=== PATIENT | female | born 1980 | race Caucasian/White ===

== ENCOUNTER 2020-08-26 20:22 | Emergency (ER) | payer SELFPAY ==
[2020-08-26 20:29] VITALS: BP 109/40; PULSE 90; RESP 22; TEMP 36.7; O2SAT 99
--- NOTE | 2020-08-26 21:00 | DI.RAD_ITS ---
Exam(s) XR HAND LT COMPLETE EXAM: XR HAND LT COMPLETE CLINICAL HISTORY: pain s/p fall. TECHNIQUE: 2D digital imaging was performed. COMPARISON: No exams were available for comparison FINDINGS: There is a nondisplaced transverse fracture of the distal radius. Ulnar styloid tip appears intact. No significant ulnar variance nor carpal dislocation. No fracture seen in the hand. No radiopaque foreign body. No osseous lesions nor erosions. IMPRESSION: No hand fractures but there is nondisplaced fracture distal radius. DATA REPOSITORY: RADIATION DOSE DELIVERED:
--- NOTE | 2020-08-26 21:00 | DI.RAD_ITS ---
Exam(s) XR FOREARM LT EXAM: XR FOREARM LT CLINICAL HISTORY: pain s/p fall. TECHNIQUE: 2D digital imaging was performed. COMPARISON: No exams were available for comparison FINDINGS: Nondisplaced fracture of the distal radius noted. No fracture seen more proximally in the forearm mandy magnus. No elbow joint effusion. IMPRESSION: DATA REPOSITORY: RADIATION DOSE DELIVERED:
--- NOTE | 2020-08-26 21:02 | DI.RAD_ITS ---
Exam(s) XR WRIST LT COMPLETE EXAM: XR WRIST LT COMPLETE CLINICAL HISTORY: pain s/p fall. TECHNIQUE: 2D digital imaging was performed. COMPARISON: No exams were available for comparison FINDINGS: There is a nondisplaced transverse fracture in the distal radius located 1 centimeter proximal to the radiocarpal joint surface and not appearing to violate the joint surface. Adjacent distal ulna is i ntact. No significant ulnar variance. Scaphoid and other carpal row bones appear unremarkable. IMPRESSION: There is nondisplaced transverse fracture in the distal radius. DATA REPOSITORY: RADIATION DOSE DELIVERED:
--- NOTE | 2020-08-26 21:06 | W.ED.GENAD ---
Discharge Plan Disposition Patient Disposition: HOME Condition: Stable Discharge Details Clinical Impression: Fracture of left wrist, Contusion of hand, left, Contusion of forearm Primary Care Provider: Unknown,Unknown ED Provider: Valentin Mckeon Discharge Instructions Instructions: Wrist Fracture in Adults (ED) Additional Instructions: you can take 1000mg tylenol and 600mg ibuprofen every 6 hours for pain as needed call orthopedics for an appointment if you have severe worsening pain or new pain such as chest pain or abdomen pain return to the emergency department Referrals: Nilton Hung MD [ [facility] STAFF PHYSICIAN] - Medical Decision Making 40 yo female who denies chronic medical problems comes in with cc of left wrist pain. She was playing basketball just prior to arrival, tripped and fell back landing on right wrist. No head trauma or loc and only has pain in the left wirst area. She has pain over radial surface of the left wrist, normal pulses and no visible or palpable deformity. Has mild mid forearm pain as well and hand in the palmar surface of the hand, full range of motion of the fingers and limited rom of the wrist due to the pain. no pain in the elbow with full range of motion. Suspect contusion/sprain but will xray to evaluate for fx xray on my read shows non displaced radius fracture, remains stable. If vrad agrees will place in splint and have her f/u with ortho Differential Diagnosis Differential Diagnosis: sprain, contusion, fracture Imaging Data Radiologic Study: Attestation: I personally reviewed and interpreted this imaging study as follows: Imaging: X-Ray My impression: wrist fracture on hand xray Radiologic Study #2: Attestation: I personally reviewed and interpreted this imaging study as follows: Imaging: X-Ray My impression: wrist fracture on wrist xray Radiologic Study #3: Attestation: I personally reviewed and interpreted this imaging study as follows: Imaging: X-Ray My impression: wrist fracture on forearm xray HPI General Mode of arrival: ambulatory. Date/Time Provider Initiated Documentation: 08/26/20 20:32. Limitations to Documentation: no limitations. Information obtained by: patient. History of Present Illness 40 year old F presents to the emergency department with the chief complaint of left wrist pain, described as moderate, Quality is described as aching, and it has been constant. No relieving factors improve symptom(s), No exacerbating factors reported . Patient notes no other symptoms.. Patient did receive the following treatments prior to arrival, none General Stated Complaint: Orthopedic JEET: 4 Review of Systems All systems reviewed & are unremarkable except as noted in HPI and below Constitutional Constitutional: Denies chills, Denies fever(s) and Denies weakness Cardiovascular Cardiovascular: Denies chest pain and Denies dyspnea Respiratory Respiratory: Denies cough and Denies dyspnea Gastrointestinal Gastrointestinal: Denies abdominal pain, Denies nausea and Denies vomiting Neurologic Neurologic: Denies weakness [facility] Social History Smoking/Tobacco Use Status: Current every day Smoking risk assessment performed?: Yes Alcohol Intake: current Alcohol Intake frequency: a few times a week Substance use type: marijuana Do you feel safe at home: Yes Do you feel safe in your relationship?: Yes Exam Const General: no acute distress Orientation: alert HENTN Head: normal to inspection Ears: external ears normal General nose exam: external nose normal Mouth: moist mucous membranes Eyes General: appearance normal, both eyes and all related structures Neck Neck: normal visual inspection Resp Effort & Inspection: normal respiratory effort and able to speak in complete sentences Cardio Rate: regular rate Skin General skin exam: no rashes or lesions noted Neuro General: patient alert and patient oriented x3 Extrem General: capillary refill normal Psych Mental Status: mental status grossly normal Course Vital Signs Vital signs: Vital Signs Temperature 36.7 C 08/26/20 20:29 Pulse 90 08/26/20 20:29 Respiratory Rate 22 08/26/20 20:29 Blood Pressure 109/40 L 08/26/20 20:29 Pulse Oximetry 99 08/26/20 20:29 Temperature 36.7 C 08/26/20 20:29 Temperature Source Temporal Artery Scan 08/26/20 20:29 Pulse 90 08/26/20 20:29 Respiratory Rate 22 08/26/20 20:29 Respiratory Effort Non-Labored 08/26/20 20:32 Blood Pressure 109/40 L 08/26/20 20:29 Pulse Oximetry 99 08/26/20 20:29 Oxygen Delivery Method Room Air 08/26/20 20:29 Oxygen Flow Rate 0 08/26/20 20:29 Pain Level 10 08/26/20 20:29
[2020-08-26] MEDS: Ibuprofen 600 MG TAB PO (21:08)
[2020-08-26] MEDS: oxyCODONE 5 MG TAB PO (21:30)
--- NOTE | 2020-08-26 21:45 | DI.VRAD_ITS ---
PROCEDURE INFORMATION: Exam: XR Left Wrist Exam date and time: 08/26/2020 8:34 PM Age: 40 years old Clinical indication: Pain; Wrist; Left; Patient HX: Fall. ; Additional info: Best images obtained unable to remove plastic bracelet. TECHNIQUE: Imaging protocol: XR Left wrist. Views: 3 or more views. COMPARISON: No relevant prior studies available. FINDINGS: Bones/joints: This transverse fracture of the distal radial metaphysis with mild dorsal angulation. Soft tissues: Soft tissue swelling is present. IMPRESSION: Transverse fracture of the distal radial metaphysis with mild dorsal angulation. Dictated and Authenticated by: Theodore Poon MD. Ordering:ISMAEL Hanson MD
--- NOTE | 2020-08-26 21:46 | DI.VRAD_ITS ---
PROCEDURE INFORMATION: Exam: XR Left Forearm Exam date and time: 08/26/2020 8:34 PM Age: 40 years old Clinical indication: Pain; Wrist; Left; Additional info: Best images obtained unable to remove plastic bracelet. TECHNIQUE: Imaging protocol: XR Left forearm. Views: 2 views. COMPARISON: CR XR HAND LT COMPLETE 08/26/2020 8:55 PM FINDINGS: Bones/joints: Again noted is a transverse fracture of the distal radial metaphysis. No fracture of the mid or proximal forearm is noted. Soft tissues: Normal. IMPRESSION: Fracture of the distal radial metaphysis as previously described. Dictated and Authenticated by: Theodore Poon MD. Ordering:ISMAEL Hanson MD
--- NOTE | 2020-08-26 21:47 | DI.VRAD_ITS ---
PROCEDURE INFORMATION: Exam: XR Left Hand Exam date and time: 08/26/2020 8:34 PM Age: 40 years old Clinical indication: Pain; Hand; Left; Additional info: Best images obtained unable to remove plastic bracelet. TECHNIQUE: Imaging protocol: XR Left hand. Views: 3 or more views. COMPARISON: No relevant prior studies available. FINDINGS: Bones/joints: No acute fracture or dislocation of the hand. Transverse fracture of the distal radial metaphysis. Soft tissues: Normal. IMPRESSION: No acute fracture or dislocation of the hand. Dictated and Authenticated by: Theodore Poon MD. Ordering:ISMAEL Hanson MD
== END 2020-08-26 21:50 | disposition home or self-care (01) ==
PROVIDERS: Emergency Provider Emergency Medicine
DX: S52.592A Other fractures of lower end of left radius, initial encounter for closed fracture (principal); W18.39XA Other fall on same level, initial encounter
CPT/HCPCS: 99284; 73090; 73110; 73130; 99283

== ENCOUNTER 2020-09-05 11:38 | Outpatient (CLI) | payer SELFPAY ==
--- NOTE | 2020-09-05 11:30 | DI.RAD_ITS ---
Exam(s) XR WRIST LT LIMITED EXAM: XR WRIST LT LIMITED CLINICAL HISTORY: f/u fracture. TECHNIQUE: 2D digital imaging was performed. COMPARISON: CR,XR XR WRIST LT COMPLETE from 08/26/2020 FINDINGS: In noted is a healing fracture site distal. Fracture line is still faintly but increasing less so th an previous. No displacement. No violation of the radiocarpal joint space. Distal ulna appears int act as does the ulnar styloid. Scaphoid bone appears intact bone density is normal IMPRESSION: DATA REPOSITORY: RADIATION DOSE DELIVERED:
== END 2020-09-05 11:39 | disposition home or self-care (01) ==
LOC: DIORS 11:38
PROVIDERS: Visit Provider Physician Assistant Surgical
DX: S62.102D Fracture of unspecified carpal bone, left wrist, subsequent encounter for fracture with routine healing (principal); X58.XXXD Exposure to other specified factors, subsequent encounter
CPT/HCPCS: 73100

== ENCOUNTER 2022-11-27 03:38 | Emergency (ER) | payer MEDICAID, SELFPAY ==
[2022-11-27 03:44] VITALS: BP 127/75; PULSE 90; RESP 16; TEMP 36.6; O2SAT 100
[2022-11-27 03:56] LABS: Bilirubin Negative (Negative); Blood Large (Negative); Clarity Cloudy (Clear); Glucose Negative (Negative); Ketones Negative (Negative); Leukocyte Esterase Small (Negative); Nitrite Positive (Negative); Specific Gravity 1.025 (1.005-1.025); Urobilinogen 0.2 mg/dL (Up to 0.2); pH 5.5 (5-8)
[2022-11-27 04:05] LABS: WBC >50 HPF (0-5)
[2022-11-27 04:06] LABS: C & S Indicated? Yes
--- NOTE | 2022-11-27 04:12 | W.ED.GENAD ---
Discharge Plan Disposition Patient Disposition: Home Discharge Details Clinical Impression: Urinary tract infection Primary Care Provider: None,None ED Provider: Brittani Moody Home Meds and New Rx's Prescriptions: New phenazopyridine [Pyridium] 200 mg tablet 200 mg PO TID PRN (Reason: pain) Qty: 7 0RF nitrofurantoin monohyd/m-cryst [Macrobid] 100 mg capsule 100 mg PO BID 7 Days Qty: 14 1RF Rx Instructions: must administer with a meal/food Discharge Instructions Instructions: Urinary Tract Infection in Women (ED) Additional Instructions: Take the Macrobid twice a day as prescribed. Pyridium 3 times per day for today and tomorrow. Drink plenty of fluids. Return to ED for fever 100.4 or above, flank pain, vomiting, any other concerns. Medical Decision Making Patient has no allergies and I will give her Macrodantin for the UTI. I also told her that she can take 1 macrodantin after intercourse if she feels she starts to get more frequent UTIs. Medical Records Medical records reviewed: Yes I reviewed the patient's medical records. Lab Data Lab results reviewed: Yes I reviewed the patient's lab results. Lab results narrative: Urine positive for infection HPI General Date/Time Provider Initiated Documentation: 11/27/22 04:06. HPI Narrative: This 42-year-old female patient presents with a chief complaint of dysuria that started yesterday. Patient states she did not feel well yesterday and actually took a nap. Around 8:00 last night she began having urinary urgency, frequency, and burning. She denies abdominal fever or chills. Makes this better or worse. Nausea, vomiting, or diarrhea. Patient states sexually active but denies any possibility of . Related Data Home Medications Medication Instructions Recorded Confirmed nitrofurantoin 100 mg PO BID 7 days #14 caps 11/27/22 monohydrate/macrocrystals 100 mg capsule (Macrobid) phenazopyridine 200 mg tablet 200 mg PO TID PRN pain 6 doses #7 11/27/22 (Pyridium) tabs Previous Rx's Medication Instructions Recorded nitrofurantoin 100 mg PO BID 7 days #14 caps 11/27/22 monohydrate/macrocrystals 100 mg capsule (Macrobid) phenazopyridine 200 mg tablet 200 mg PO TID PRN pain 6 doses #7 11/27/22 (Pyridium) tabs Allergies Allergy/AdvReac Type Severity Reaction Status Date / Time No Known Allergies Allergy Verified 09/05/20 11:28 General Stated Complaint: Urinary JEET: 4 Review of Systems Constitutional Constitutional: Denies chills, Denies fever(s), Denies headache(s) and Denies weakness Eyes Eyes: Denies diplopia and Reports other (no redness) ENT Ears, Nose, Mouth, and Throat: Denies otalgia, Denies headache(s), Denies nasal congestion, Denies nasal discharge, Denies neck pain and Denies sore throat Cardiovascular Cardiovascular: Denies chest pain, Denies palpitations and Denies dyspnea Respiratory Respiratory: Denies cough and Denies dyspnea Gastrointestinal Gastrointestinal: Denies abdominal pain, Denies diarrhea, Denies nausea and Denies vomiting Genitourinary Genitourinary: Denies dysuria Musculoskeletal Musculoskeletal: Denies myalgias, Denies muscle weakness, Denies neck pain, Denies numbness and Reports other (edema) Integumentary/Breasts Skin/Breast: Denies change in pigmentation and Denies rash Neurologic Neurologic: Denies headache(s), Denies numbness and Denies weakness Endocrine Endocrine: Denies palpitations PFSH All Active Problems Fracture of left wrist (Acute) Contusion of hand, left (Acute) Contusion of forearm (Acute) Urinary tract infection (Acute) Social History Smoking/Tobacco Use Status: Current every day Smoking risk assessment performed?: Yes Alcohol Intake: current Alcohol Intake frequency: a few times a week Substance use type: marijuana Current gender identity: female Do you feel safe at home: Yes Do you feel safe in your relationship?: Yes Exam Const General: no acute distress, well developed, well groomed and not in acute distress Nutritional Appearance: well nourished Orientation: alert and oriented x3 HENMT Head: normocephalic and atraumatic Ears: external ears normal Mouth: oropharynx normal and moist mucous membranes Throat: posterior oropharynx normal Eyes Conjunctivae: conjunctivae normal Neck Neck: full ROM and supple Chest Chest: normal inspection of the chest Resp Effort & Inspection: normal respiratory effort Auscultation: clear to auscultation bilaterally Cardio Rate: regular rate Rhythm: regular rhythm Heart Sounds: no murmurs and no rubs GI Inspection: normal to inspection Palpation: soft, nontender and other (non distended) Auscultation: normal bowel sounds Skin General skin exam: no rashes or lesions noted and other (pink, warm, dry) Neuro General: patient alert, patient awake and patient oriented x3 Speech: speech normal Motor: other (RUIZ) Sensory Exam: no sensory deficits noted Extrem General: normal to inspection, full ROM and pedal edema present Psych Mental Status: mental status grossly normal Speech and Movement: speech and movement normal Affect: normal affect Course Vital Signs Vital signs: Vital Signs Temperature 36.6 C 11/27/22 03:44 Pulse 90 11/27/22 03:44 Respiratory Rate 16 11/27/22 03:44 Blood Pressure 127/75 11/27/22 03:44 Pulse Oximetry 100 11/27/22 03:44 Temperature 36.6 C 11/27/22 03:44 Temperature Source Oral 11/27/22 03:44 Pulse 90 11/27/22 03:44 Respiratory Rate 16 11/27/22 03:44 Respiratory Effort Normal 11/27/22 03:46 Blood Pressure 127/75 11/27/22 03:44 Pulse Oximetry 100 11/27/22 03:44 Pain Level 0 11/27/22 03:44 Lab/Test Results Lab/Test Results: 11/27/22 03:50 Urine - Reflex from Ua Urine Culture - Pending Laboratory Tests Range/Units 11/27/22 03:50 Urine Color (Yellow) Yellow Urine Clarity (Clear) Cloudy Urine pH (5-8) 5.5 Ur Specific Hillister (1.005-1.025) 1.025 Urine Protein (Negative) mg/dL 100 H Urine Ketones (Negative) mg/dL Negative Urine Blood (Negative) Large H Urine Nitrite (Negative) Positive H Urine Bilirubin (Negative) Negative Urine Urobilinogen (Up to 0.2) mg/dL 0.2 Ur Leukocyte Esterase (Negative) Small H Urine RBC (0-2) HPF Urine WBC (0-5) HPF >50 H Ur Epithelial Cells (Negative) HPF Urine Crystals (Negative) HPF Urine Bacteria (Negative) HPF Urine Mucus (Negative) Ur Culture Indicated? Yes Urine Glucose (Negative) mg/dL Negative
[2022-11-27] MEDS: Nitrofurantoin Macrocrystal 50 MG CAP 100 MG PO (04:31)
[2022-11-27] MEDS: Phenazopyridine 200 MG TAB PO (04:31)
== END 2022-11-27 04:32 | disposition home or self-care (01) ==
PROVIDERS: Emergency Provider Emergency Medicine
DX: N39.0 Urinary tract infection, site not specified (principal); B96.20 Unspecified Escherichia coli [E. coli] as the cause of diseases classified elsewhere
CPT/HCPCS: 87077; 99283; 81003; 81015; 87086; 87186

== ENCOUNTER 2023-09-17 05:36 | Emergency (ER) | payer MEDICAID, SELFPAY ==
[2023-09-17 05:41] VITALS: BP 113/76; PULSE 103; RESP 16; TEMP 36.8; O2SAT 98
--- NOTE | 2023-09-17 05:45 | DI.US_ITS ---
Exam(s) US ABDOMEN LIMITED EXAM: US ABDOMEN LIMITED CLINICAL HISTORY: RUQ pain/tenderness TECHNIQUE: Ultrasound abdomen performed using standard protocol. COMPARISON: No exams were available for comparison FINDINGS: LIVER: Normal size. Normalechogenicity. No focal liver lesions are seen.. GALLBLADDER: No evidence of cholelithiasis. No evidence of wall thickening. No pericholecystic fluid identified. Question tiny cholesterol polyp. SAAVERDA'S SIGN: Negative. BILIARY SYSTEM: No intrahepatic or extrahepatic biliary ductal dilation. RIGHT KIDNEY: Normal size. No evidence of renal calculi. No evidence of hydronephrosis. No suspicious renal mass. No cyst identified. PANCREAS: Normal where visualized. ABDOMINAL AORTA AND IVC: Visualized portions normal caliber. ASCITES: None seen. IMPRESSION: No acute abnormality.. DATA REPOSITORY:
--- NOTE | 2023-09-17 05:45 | RT.EKG_ITS ---
APPROVED REPORT Exam: Resting ECG Reason for Exam: upper abdominal pain Patient Location: E HR:72 bpm ECG Measurements Heart Rate 72 AXIS TN 124 P 43 QRSd 77 QRS 34 QT 380 T 43 QTc 418 Conclusion Sinus rhythm...normal P axis, V-rate 60- 99 Normal Electrocardiogram
--- NOTE | 2023-09-17 05:48 | W.ED.GENAD ---
Discharge Plan Discharge Details Chief Complaint: Abd Prob Clinical Impression: Abdominal pain, Vomiting Primary Care Provider: Unknown,Unknown ED Provider: Joaquin Galvin [facility] General Mode of arrival: ambulatory. Date/Time Provider Initiated Documentation: 09/17/23 05:47. Limitations to Documentation: no limitations. Information obtained by: patient and RN notes reviewed. HPI Narrative: Patient presents to ED with upper abdominal pain mostly right-sided in nature for the last 2 days. Pain does wax and wane in terms of intensity but at this point is fairly constant. She has associated nausea and vomiting at this point. She has had similar episodes though short-lived in the past. She has had couple episodes of diarrhea. She denies fever. She denies chest pain or shortness of breath. Denies any back pain or urinary symptoms. Previous tubal ligation but no other abdominal surgeries. Pain significantly worse this morning so presents to ED for evaluation. Related Data Allergies Allergy/AdvReac Type Severity Reaction Status Date / Time No Known Allergies Allergy Verified 09/17/23 05:46 General Stated Complaint: Abd Prob JEET: 3 Review of Systems Narrative: Per HPI Exam Narrative Exam Narrative: Const: WDWN female in NAD. VS per triage. HEENT: NC/AT. Normal facial exam. Neck: Supple. Trachea midline. Lungs: Normal respiratory effort. Lungs are clear. Cor: RRR without murmur. Good radial pulses. GI: Soft/ND. Tender in the right upper quadrant with voluntary guarding and equivocal Ji. Back: No CVAT. Neuro: A+O x 3. Normal speech, mentation, gait. Cranial nerves II - XII grossly intact. No gross motor or sensory deficit. Ext: No C/C/E. Course Vital Signs Vital signs: Vital Signs Temperature 98.2 F 09/17/23 05:41 Pulse 103 H 09/17/23 05:41 Respiratory Rate 16 09/17/23 05:41 Blood Pressure 113/76 09/17/23 05:41 Pulse Oximetry 98 09/17/23 05:41 Temperature 98.2 F 09/17/23 05:41 Temperature Source Temporal Artery Scan 09/17/23 05:41 Pulse 103 H 09/17/23 05:41 Respiratory Rate 16 09/17/23 05:41 Blood Pressure 113/76 09/17/23 05:41 Blood Pressure Position Sitting 09/17/23 05:41 Pulse Oximetry 98 09/17/23 05:41 Oxygen Delivery Method Room Air 09/17/23 05:41 Oxygen Flow Rate 0 09/17/23 05:41 Pain Level 3 09/17/23 05:41 Medical Decision Making Patient presenting to ED with upper abdominal pain that is mostly right-sided in nature. Significant right upper quadrant tenderness. Most likely has acute cholecystitis. Will obtain EKG and 1 troponin as she is 43 and is a smoker. Otherwise IV fluids, ondansetron, morphine ordered. Laboratory studies including a lipase sent. Right upper quadrant ultrasound ordered. Laboratory studies with a normal white count. Chemistries are unremarkable. Liver function normal and lipase normal. Troponin negative. Patient signed out to oncoming ED physician pending right upper quadrant ultrasound to evaluate for acute cholecystitis. Lab Data Lab results reviewed: Yes I reviewed the patient's lab results. ECG Data Attestation: I personally reviewed and interpreted this ECG (s) as follows: PFSH All Active Problems (Updated 09/17/23 @ 07:25 by Joaquin Galvin MD) Vomiting (Acute) Abdominal pain (Acute) Medical History No significant past medical history Surgical History S/P tubal ligation Social History Smoking/Tobacco Use Status: Current every day Smoking risk assessment performed?: Yes Alcohol Intake: current Alcohol Intake frequency: a few times a week Substance use type: marijuana Current gender identity: female Do you feel safe at home: Yes Do you feel safe in your relationship?: Yes
[2023-09-17 06:04] LABS: Bilirubin Small (Negative); Blood Trace-lysed (Negative); Clarity Sl Cloudy (Clear); Glucose Negative (Negative); Ketones >=160 mg/dL (Negative); Leukocyte Esterase Negative (Negative); Nitrite Negative (Negative); Specific Gravity >= 1.030 (1.005-1.025)
[2023-09-17 06:05] LABS: Abs Immature Grans 0.04 10^3/uL (0.0-0.06); Absolute Basophil Count 0.02 10^3/uL (0.0-0.2); Absolute Eosinophil Count 0.16 10^3/uL (0.0-0.7); Absolute Lymphocyte Count 1.42 10^3/uL (1.2-3.4); Absolute Monocyte Count 0.43 10^3/uL (0.1-0.8); Absolute Neutrophil Count 8.44 10^3/uL (1.2-6.7); Basophils % 0.2 %; Eosinophils % 1.5 %; HCT 43.4 % (36.0-46.0); HGB 15.2 g/dL (11.2-15.7); Immature Grans % 0.4 %; Lymphocytes % 13.5 %; MCH 34.9 pg (27.0-33.0); MCV 100 fL (80-95); MPV 9.6 fL (8.0-11.0); Monocytes % 4.1 %; Neutrophils % 80.3 %; Platelet Count 292 10^3/uL (130-400); RBC 4.36 10^6/uL (3.93-5.22); RDW 13.2 % (11.7-14.6); RDW-SD 48.4 fL; WBC 10.51 10^3/uL (4.4-10.8)
[2023-09-17] MEDS: Lactated Ringers 1,000 ML 1000 ML IV ×2 (06:09→07:55)
[2023-09-17 06:10] LABS: Bacteria Moderate HPF (Negative); C & S Indicated? No/Sq. Contamination; Casts Negative LPF (Negative); Crystals Negative HPF (Negative); Epithelial Cells Many HPF (Negative); Mucus Heavy (Negative); WBC 0-2 HPF (0-5)
[2023-09-17] MEDS: MORPHine 10 MG/ML VIAL 4 MG IVP (06:10)
[2023-09-17] MEDS: Ondansetron 4 MG/2 ML VIAL IVP (06:11)
[2023-09-17 06:24] LABS: ALT 23 U/L (14-59); AST 10 U/L (15-37); Albumin 3.6 g/dL (3.4-5.0); Alkaline Phosphatase 63 U/L (46-116); Anion Gap 11.9 mmol/L (3-11); BUN 10 mg/dL (7-18); Bilirubin, Total 0.98 mg/dL (0.2-1.0); CO2 23.1 mmol/L (21.0-32.0); CREATININE 0.8 mg/dL (0.55-1.02); Calcium 8.5 mg/dL (8.5-10.1); Chloride 103 mmol/L (98-107); Estimated GFR 94.87 (mL/min/1.73m2); Glucose 113 mg/dL (74-106); Lipase 19 U/L (16-77); Potassium 3.9 mmol/L (3.5-5.1); Sodium 138 mmol/L (136-145); Troponin I < 50 ng/L (< or =60)
--- NOTE | 2023-09-17 09:34 | ED.PROG_ITS ---
Date of service: 09/17/23 Time of Service: 09:34 Medical Decision Making Patient resting comfortably asymptomatic no further nausea or vomiting, abdomen soft nontender nondistended afebrile nontoxic, labs and imaging largely unremarkable incidental gallbladder polyp noted on ultrasound no signs of cholecystitis. Patient feels comfortable following with her primary care physician will return for any worsening symptoms Quality:[facility] Health Related Social Needs: No Data to Display Sign Out Sign Out Data: Sign Out Comment: Pending right upper quadrant ultrasound for right upper quadrant tenderness and vomiting despite normal white count and liver function. Last updated by Joaquin Galvin MD at 09/17/23 07:32 Discharge Plan Disposition Patient Disposition: Home Condition: Improving Discharge Details Chief Complaint: Abd Prob Clinical Impression: Abdominal pain, Vomiting, Gallbladder polyp Primary Care Provider: Unknown,Unknown ED Provider: Luisito Montero Discharge Instructions Instructions: Nausea and vomiting in adults Additional Instructions: Please follow-up with your primary care physician. Please return to the emergency department for any worsening symptoms. You are found to have a gallbladder polyp today on your ultrasound this something that should be followed up over the coming weeks to months
--- NOTE | 2023-09-17 10:29 | DI.VRAD_ITS ---
PROCEDURE INFORMATION: Exam: US Duplex Artery or Vein of the Abdominal and/or Reproductive Organs, Limited Liver Exam date and time: 09/17/2023 7:47 AM Age: 43 years old Clinical indication: Other: Ruq pain TECHNIQUE: Imaging protocol: Real-time duplex ultrasound scan of the arterial or venous flow with color Doppler flow and spectral waveform analysis with image documentation. Limited Duplex exam focused on the liver and portal venous system. Duplex exam was performed to evaluate for vascular conditions. COMPARISON: No relevant prior studies available. FINDINGS: Portal venous: The portal vein is patent with hepatopetal flow. Spectral waveform demonstrates normal respiratory phasicity. IMPRESSION: Unremarkable duplex of the portal vein. PROCEDURE INFORMATION: Exam: US Abdomen, Limited; Right Upper Quadrant Exam date and time: 09/17/2023 7:47 AM Age: 43 years old Clinical indication: Other: Ruq pain TECHNIQUE: Imaging protocol: Real time ultrasound of the abdomen with image documentation. Limited exam focused on the right upper quadrant. COMPARISON: No relevant prior studies available. FINDINGS: Liver: Normal. No masses. Gallbladder: Gallbladder wall measures 2 mm. Tiny 3 mm gallstones/polyp. Biliary ducts: Common bile duct measures 3 mm. Pancreas: Visualized pancreas is unremarkable. Right kidney: The right kidney measures 10.5 cm. No hydronephrosis. IMPRESSION: No acute findings. Dictated and Authenticated by: Jeni Oshea MD. Ordering:ROMEO Nuñez MD
== END 2023-09-17 09:58 | disposition home or self-care (01) ==
PROVIDERS: Emergency Medicine; Emergency Provider Emergency Medicine
DX: R10.11 Right upper quadrant pain (principal); R19.7 Diarrhea, unspecified; K82.4 Cholesterolosis of gallbladder; F17.200 Nicotine dependence, unspecified, uncomplicated
CPT/HCPCS: 00123; 80053; 83690; 93005; 96361; 96374; 99285; 76705; 81003; 81015; 84484; 85025; 93010; 99284; J2270; J2405